=== PATIENT | male | born 1980 ===

== ENCOUNTER → 2023-06-19 | Emergency (ER) | payer SELFPAY ==
[~2023-06-19] VITALS: Ht 167.6 cm; Wt 76.9 kg
[2023-06-19 16:38] VITALS: BP 139/93; PULSE 83; RESP 16; TEMP 98.2; O2SAT 100
== END | disposition home or self-care (01) ==
LOC: ER 16:32
DX: R10.12 Left upper quadrant pain (principal)
CPT/HCPCS: 99281